=== PATIENT | male | born 1965 | race Two or more races ===

== ENCOUNTER 2018-09-16 09:40 | Observation (INO) | payer MEDICAID ==
[2018-09-14 09:54] LABS: MICROSCOPIC NOT IND
[2018-09-14 09:57] LABS: CULTURE INDICATED? NO
[~2018-09-16] VITALS: Ht 167.6 cm; Wt 103.0 kg
[~2018-09-16 09:40] MED LIST: ALLO300T PO; ASPI-496 PO; TERB250T14 PO
[2018-09-16] MEDS ORDERED: TRANEXAMIC ACID 100 MG/ML, 10ML ONE (09:43)
[2018-09-16] MEDS ORDERED: LACTATED RINGERS 1,000 ML IV SCH (10:11)
[2018-09-16 10:15] VITALS: BP 133/91
[2018-09-16] MEDS ORDERED: ACETAMINOPHEN 500 MG TABLET PO ONE (10:30)
[2018-09-16] MEDS ORDERED: ONDANSETRON ODT 8 MG PO ONE (10:30)
[2018-09-16] MEDS ORDERED: GABAPENTIN 300 MG CAPSULE PO ONE (10:30)
[2018-09-16] MEDS ORDERED: TAMSULOSIN 0.4 MG CAP.ER.24H PO ONE (10:30)
[2018-09-16] MEDS ORDERED: MIDAZOLAM 1 MG/ML, 2ML ONE (12:20)
[2018-09-16] MEDS ORDERED: FENTANYL PF 250 MCG/5ML ONE (12:20)
[2018-09-16] MEDS ORDERED: D5%-0.45% NACL 1,000 ML IV SCH (12:46)
[2018-09-16] MEDS ORDERED: SUCCINYLCHOLINE 20 MG/ML, 10ML ONE (12:59)
[2018-09-16] MEDS ORDERED: ROCURONIUM 10MG/ML,5ML ONE (12:59)
[2018-09-16] MEDS ORDERED: KETOROLAC 30 MG/1 ML ONE (12:59)
[2018-09-16] MEDS ORDERED: SENNA/DOCUSATE TABLET PO PRN (13:00)
[2018-09-16] MEDS ORDERED: ACETAMINOPHEN 650 MG/20.3 ML UDC PO PRN (13:00)
[2018-09-16] MEDS ORDERED: BISACODYL 10 MG SUPP PR PRN (13:00)
[2018-09-16] MEDS ORDERED: HYDROcodone/APAP 10/325 MG TABLET PO PRN (13:00)
[2018-09-16] MEDS ORDERED: ONDANSETRON 2MG/ML, 2ML IV PRN ×2 (13:00→14:00)
[2018-09-16] MEDS ORDERED: DIPHENHYDRAMINE 50 MG CAPSULE PO PRN (13:00)
[2018-09-16] MEDS ORDERED: DIAZEPAM 5 MG TABLET PO PRN (13:00)
[2018-09-16] MEDS ORDERED: ONDANSETRON 4 MG TABLET PO PRN (13:00)
[2018-09-16] MEDS ORDERED: morphine SULFATE 10 MG/ML, 1ML IV PRN (13:00)
[2018-09-16] MEDS ORDERED: CEFAZOLIN PMX 2GM/50ML 50 ML IVPB SCH ×2 (13:00→22:00)
[2018-09-16] MEDS ORDERED: MAGNESIUM HYDROXIDE 8%, 30ML UDC PO PRN (13:00)
[2018-09-16] MEDS ORDERED: MIDAZOLAM 1 MG/ML, 2ML IV PRN (14:00)
[2018-09-16] MEDS ORDERED: OXYcodone 5 MG/5 ML ORAL.SOL UDC PO PRN (14:00)
[2018-09-16] MEDS ORDERED: HYDROmorphone 1 MG/ML, 1ML IV PRN (14:00)
[2018-09-16] MEDS ORDERED: PROMETHAZINE 25 MG SUPP PR PRN (14:00)
[2018-09-16] MEDS ORDERED: ALBUTEROL/IPRATROPIUM 2.5MG/0.5MG, 3 ML NPPB PRN (14:00)
[2018-09-16] MEDS ORDERED: LABETALOL 5MG/ML, 20ML IV PRN (14:00)
[2018-09-16] MEDS ORDERED: MEPERIDINE/PF 25MG/0.5ML IVPush PRN (14:00)
[2018-09-16] MEDS ORDERED: SCOPOLAMINE PATCH, 1.5MG PATCH.TD72 TD PRN (14:00)
[2018-09-16] MEDS ORDERED: ROPIvacaine/PF 0.2%, 20 ML ONE (14:20)
[2018-09-16] MEDS ORDERED: LIDOCAINE-MPF 2% ,5ML ONE (14:20)
[2018-09-16] MEDS ORDERED: DEXAMETHASONE 4 MG/ML, 1ML ONE (14:20)
[2018-09-16] MEDS ORDERED: PROPOFOL 10 MG/ML, 20ML ONE (14:20)
[2018-09-16] MEDS ORDERED: CEFAZOLIN 1,000 MG ONE (14:20)
[2018-09-16] MEDS ORDERED: OXYcodone 5 MG/5 ML ORAL.SOL UDC ONE (14:41)
[2018-09-16] MEDS ORDERED: FENTANYL PF 100 MCG/2ML ONE (14:42)
[2018-09-16] MEDS: FENTANYL PF 100 MCG/2ML IV PRN ×4 (14:43→15:50)
[2018-09-16] MEDS: HYDROcodone/APAP 10/325 MG TABLET PO SCH ×3 (15:00→19:04)
[2018-09-16 20:11] VITALS: BP 118/85
[2018-09-16] MEDS ORDERED: DOCUSATE 100 MG CAPSULE PO SCH (21:00)
[2018-09-17] MEDS ORDERED: ALLOPURINOL 300 MG TABLET PO SCH (09:00)
[2018-09-17] MEDS ORDERED: MULTIVITAMINS/MINERALS TABLET PO SCH (09:00)
[2018-09-17] MEDS ORDERED: TERBINAFINE 250MG TABLET PO SCH (09:00)
[2018-09-17] MEDS ORDERED: KETOROLAC 30 MG/1 ML IV SCH (13:00)
[2018-09-17] MEDS ORDERED: ASPIRIN 325 MG TABLET EC PO SCH (18:00)
== END 2018-09-16 21:10 | disposition home or self-care (01) ==
LOC: OUT 09:40 → ORIP 12:46 → 4NOR 16:34
PROVIDERS: ADMIT Orthopaedic Surgery; ATTEND Orthopaedic Surgery
DX: M19.90 Unspecified osteoarthritis, unspecified site (principal)
CPT/HCPCS: 27446; 73560; 81003; 87081; 93005; C1713; C1776; G0378; J0690; J1100; J2250; J2704; J2795; J3010; J3490; J7120; Q0162; J1885; J0330